=== PATIENT | female | born 1935 | race Caucasian/White ===

== ENCOUNTER 2017-12-10 14:21 | Inpatient (IN) | payer OTHER ==
[2017-12-10] MEDS: NS 1000 ML 1,000 ML IV SCH ×2 (15:05→22:48)
[2017-12-10 15:18] LABS: ABG BASE EXCESS 5.1 mmol/L (-2.0-2.0); ABG HCO3 27.1 mmol/L (22-26)
[2017-12-10 15:24] LABS: BASOPHILS % (AUTO) 0.2 % (0.2-1.0); HEMATOCRIT 27.2 % (36.0-47.0); HEMOGLOBIN 8.9 g/dL (12.0-16.0); LYMPHOCYTES # (AUTO) 1.7 X10^3/uL (1.3-2.9); LYMPHOCYTES % (AUTO) 13.6 % (21.0-51.0); MEAN CORPUSCULAR HEMOGLOBIN 29.1 pg (27.0-34.0); MEAN CORPUSCULAR HGB CONC 32.9 g/dL (33.0-35.0); MEAN CORPUSCULAR VOLUME 88.4 fL (80.0-100.0); MEAN PLATELET VOLUME 7.8 fL (7.4-11.0); MONOCYTES # (AUTO) 0.7 x10^3/uL (0.3-0.8); MONOCYTES % (AUTO) 5.6 % (0.0-13.0); NEUTROPHILS # (AUTO) 10.3 x10^3/uL (2.2-4.8); NEUTROPHILS % (AUTO) 80.6 % (42.0-75.0); PLATELET COUNT 196 X10^3/uL (150.0-450.0); RED BLOOD COUNT 3.07 X10^6/uL (3.5-5.4); RED CELL DISTRIBUTION WIDTH 17.8 % (11.6-16.5); WHITE BLOOD COUNT 12.8 X10^3/uL (3.6-10.0)
[2017-12-10 15:30] LABS: AMMONIA 23 umol/L (11-32)
[2017-12-10 15:36] VITALS: BMI 16.5
[2017-12-10 15:39] LABS: ALANINE AMINOTRANSFERASE 705 Units/L (12-78); ALBUMIN 2.2 g/dL (3.4-5.0); ALKALINE PHOSPHATASE 122 Units/L (46-116); BLOOD UREA NITROGEN 31 mg/dL (7-18); CALCIUM 8.2 mg/dL (8.5-10.1); CARBON DIOXIDE 28.2 mmol/L (21-32); CHLORIDE 103 mmol/L (98-107); COR CA(FOR HYPOALB) 9.6 mg/dL (8.5-10.1); CREATININE 1.66 mg/dL (0.55-1.02); SODIUM 139 mmol/L (136-145); TOTAL PROTEIN 5.8 g/dL (6.4-8.2); eGFR BLACK RACES 38 (>60); eGFR NON BLACK RACES 31 (>60)
[2017-12-10 15:40] LABS: ASPARTATE AMINO TRANSFERASE 1191 Units/L (15-37)
[2017-12-10 15:49] LABS: ANISOCYTOSIS SLIGHT; BAND NEUTROPHILS % 3 % (0-10); HYPOCHROMASIA 1+; MYELOCYTES % 1; PLATELET MORPHOLOGY COMMENT NORMAL (NORMAL)
[2017-12-10 15:50] LABS: TARGET CELLS NOTED
--- NOTE | 2017-12-10 16:39 | RAD ---
HISTORY: COPD. Hypertension. Study: AP portable chest Comparison: 04/13/2015 Findings: There are findings of mild pulmonary vascular congestion. Bibasilar atelectatic change/infiltrate bi lateral pleural effusions are noted, slightly improved bilaterally. Moderate to moderately severe ca rdiomegaly is noted. A small radiopacity is present in the right mid to lower lung zone, possibly fo ericka infiltrate. Moderate osteopenia is noted. Electronic cardiac device present on the left with it s 2 leads appearing to be in appropriate position. No acute bony abnormalities are identified. IMPRESSION: 1. Moderate to moderately severe cardiomegaly with mild pulmonary vascular congestion. 2. Bibasilar atelectasis/infiltrate and pleural effusions, slightly improved. 3. Small focal radiopacity in the right mid to lower lung zone, possibly focal infiltrate. This is m ore prominent than on the prior examination. Follow-up in 10-14 days is recommended. Reported By:
[2017-12-10 17:23] LABS: AMYLASE 81 Units/L (25-115); LIPASE 269 Units/L (73-393)
--- NOTE | 2017-12-10 17:39 | CT ---
CT of the abdomen and pelvis without contrast Indication: Altered mental status with acute liver failure Findings: Visualized portions of the lower lobes demonstrate bibasilar atelectasis with small bilater al pleural effusions. there is cardiomegaly with coronary atherosclerotic disease. Images of the subc utaneous tissue demonstrate a small fat containing periumbilical hernia with circumferential strandin g which may represent mild anasarca. The abdominal aorta shows atherosclerotic disease without aneury smal dilatation. the bone windows demonstrate mild multilevel discogenic degenerative disease and fac et arthropathy with grade 1 anterolisthesis of L4 on L5. No aggressive lesions are seen. Abdomen: Given the limitations of a noncontrast exam the liver is unremarkable. The gallbladder has b een removed. The kidneys show no hydronephrosis. Adrenal glands are normal. Spleen shows no abnormali ty. Pancreas is unremarkable. The spleen is minimally enlarged and there are several varicosities. Th ere is trace ascites. Pelvis: There is trace free pelvic fluid. The urinary bladder is unremarkable. No adenopathy is seen. The bowel is unremarkable, specifically without obstruction or ileus. Conclusion: 1. Question of cirrhosis given the splenomegaly and varicosities along with minimal ascit es. However evaluation is severely limited on noncontrast CT. Ultrasound could be performed to evalua te for reversal of portal flow and to look for surface nodularity which with support cirrhosis. 2. Marked cardiomegaly and coronary artery disease with bilateral pleural effusions. Reported By:
[2017-12-10 17:44] LABS: BILIRUBIN,URINE NEGATIVE (NEGATIVE); BLOOD/HEMOGLOBIN,URINE 1+ (NEGATIVE); GLUCOSE, URINE NEGATIVE (NEGATIVE); KETONES,URINE NEGATIVE (NEGATIVE); LEUKOCYTE ESTERASE ,URINE NEGATIVE (NEGATIVE); NITRITES,URINE NEGATIVE (NEGATIVE); PROTEIN,URINE 3+ (NEGATIVE); UROBILINOGEN,URINE NORMAL (NORMAL)
[2017-12-10 17:54] LABS: APPEARANCE,URINE SLIGHTLY HAZY (CLEAR); BACTERIA,URINE 3+ /HPF (NEGATIVE); COLOR,URINE YELLOW (YELLOW); SQUAMOUS EPITHELIAL CELL,UR RARE /HPF (NEGATIVE)
[2017-12-10 17:55] LABS: AMORPHOUS SEDIMENT,UR 2+ /HPF (NEGATIVE); HYALINE CASTS, URINE RARE /LPF (NEGATIVE)
[2017-12-11 06:20] LABS: ABG BASE EXCESS 2.8 mmol/L (-2.0-2.0); ABG HCO3 25.7 mmol/L (22-26)
[2017-12-11 06:36] LABS: BASOPHILS % (AUTO) 0.1 % (0.2-1.0); HEMATOCRIT 27.5 % (36.0-47.0); HEMOGLOBIN 9.1 g/dL (12.0-16.0); LYMPHOCYTES # (AUTO) 2.2 X10^3/uL (1.3-2.9); LYMPHOCYTES % (AUTO) 14.1 % (21.0-51.0); MEAN CORPUSCULAR HEMOGLOBIN 29.4 pg (27.0-34.0); MEAN CORPUSCULAR HGB CONC 33.2 g/dL (33.0-35.0); MEAN CORPUSCULAR VOLUME 88.5 fL (80.0-100.0); MEAN PLATELET VOLUME 8.6 fL (7.4-11.0); MONOCYTES # (AUTO) 0.8 x10^3/uL (0.3-0.8); MONOCYTES % (AUTO) 5.4 % (0.0-13.0); NEUTROPHILS # (AUTO) 12.4 x10^3/uL (2.2-4.8); NEUTROPHILS % (AUTO) 80.4 % (42.0-75.0); PLATELET COUNT 184 X10^3/uL (150.0-450.0); RED BLOOD COUNT 3.11 X10^6/uL (3.5-5.4); RED CELL DISTRIBUTION WIDTH 17.8 % (11.6-16.5); WHITE BLOOD COUNT 15.5 X10^3/uL (3.6-10.0)
[2017-12-11 06:56] LABS: ALANINE AMINOTRANSFERASE 864 Units/L (12-78); ALKALINE PHOSPHATASE 122 Units/L (46-116); BLOOD UREA NITROGEN 38 mg/dL (7-18); CALCIUM 8.1 mg/dL (8.5-10.1); CHLORIDE 106 mmol/L (98-107); COR CA(FOR HYPOALB) 9.7 mg/dL (8.5-10.1); CREATININE 1.51 mg/dL (0.55-1.02); SODIUM 142 mmol/L (136-145); TOTAL PROTEIN 5.5 g/dL (6.4-8.2); eGFR BLACK RACES 42 (>60); eGFR NON BLACK RACES 35 (>60)
[2017-12-11 06:57] LABS: ASPARTATE AMINO TRANSFERASE 1128 Units/L (15-37)
--- NOTE | 2017-12-11 07:28 | RAD ---
History: Acute liver failure. Study: Portable AP chest Comparison: Yesterday Findings: There is unchanged moderate cardiomegaly. There is a right pleural effusion that appears la rger than on yesterday's exam. There is mild vascular congestion. There are intact pacemaker wire jamil ds via the left subclavian vein. Impression: 1. Unchanged cardiomegaly with increasingly large right pleural effusion persistent vascular congesti on suggesting CHF Reported By:
[2017-12-11] MEDS: NS 1000 ML 1,000 ML IV SCH ×3 (08:16→22:05)
[2017-12-11] MEDS ORDERED: MORPHINE SULFATE INJ 2 MG INJ ONE (09:36)
[2017-12-11] MEDS ORDERED: BUTT CREAM (COMPOUND) ONE (09:40)
[2017-12-11] MEDS ORDERED: MORPHINE SULFATE INJ 2 MG INJ IVP ONE (10:16)
--- NOTE | 2017-12-11 10:27 | RAD ---
HISTORY: Central line placement. Study: Portable chest. Comparison: Chest x-ray dated December 11, 2017 at 6:45 a.m. Findings: The patient is rotated to the right. Interval placement of a right subclavian central venous catheter whose tip overlies the expected area of the cavoatrial junction. Cardiomegaly appears unchanged. Sta ble appearance of a multi lead left chest cardiac pacemaker. Lung aeration appears unchanged. No obvi ous pneumothorax. The osseous structures appear unchanged. IMPRESSION: 1. Right subclavian line that appears to be in good position. 2. No significant change in lung aeration. Reported By:
[2017-12-11] MEDS ORDERED: TESSALON PERLES PO PRN (10:38)
[2017-12-11] MEDS ORDERED: XANAX PO PRN (10:38)
[2017-12-11] MEDS ORDERED: PATIENT'S HOME MEDICATION (Ferrous Sulfate [Ferrous Sulfate] 325 MG) PO SCH (10:45)
[2017-12-11] MEDS ORDERED: PHARMACY CONSULT - TPN XX SCH (11:00)
[2017-12-11] MEDS ORDERED: PHARMACY CONSULT - DOSE _____ XX SCH (11:00)
[2017-12-11 11:30] LABS: ACETAMINOPHEN 4.5 ug/mL (10-30)
[2017-12-11] MEDS ORDERED: POTASSIUM CHLORIDE PO SCH (11:30)
[2017-12-11] MEDS: HEMOCYTE-PLUS PO SCH (11:59)
[2017-12-11] MEDS: MACITENTAN 10 MG PO SCH (11:59)
[2017-12-11] MEDS: ALBUMIN HUMAN 25%- 100ML 100 ML IV SCH (11:59)
[2017-12-11] MEDS: FOLTX PO SCH (11:59)
[2017-12-11] MEDS ORDERED: NS IV SCH (12:00)
[2017-12-11] MEDS ORDERED: PATIENT'S HOME MEDICATION PO SCH (12:00)
[2017-12-11] MEDS: ROCEPHIN 1 GM IV PREMIX 1 GM/50 ML IV.SOLN. IV SCH (12:00)
[2017-12-11] MEDS: LASIX PO SCH ×2 (12:00→22:04)
[2017-12-11] MEDS ORDERED: FORTAZ OR TAZICEF IV SCH (12:00)
[2017-12-11] MEDS: REVATIO PO SCH ×3 (12:00→22:04)
[2017-12-11] MEDS: MEGACE PO SCH ×4 (12:00→22:04)
[2017-12-11] MEDS: SYNTHROID 75 mcg TAB PO SCH (12:01)
[2017-12-11 13:07] LABS: BILIRUBIN,DIRECT 1.14 mg/dL (0-0.2)
[2017-12-11] MEDS: DIFLUCAN 100 MG IV (MIX by PHARMACY)* 100 MG/50 ML BAG IV SCH (13:21)
--- NOTE | 2017-12-11 13:59 | US ---
History: Acute liver failure Study: Ultrasound of the liver Findings: The liver is normal in size without demonstration of focal mass. There is appropriate flow in the hepatic vein and portal vein. The common hepatic duct measures 3.2 mm diameter. The IVC is pat ent. Fluid is demonstrated around the liver. Impression: 1. Mild ascites demonstrated 2. Unremarkable liver Reported By:
[2017-12-11] MEDS ORDERED: PHARMACY CONSULT - VANCOMYCIN XX SCH (14:00)
[2017-12-11] MEDS ORDERED: TRACE ELEMENTS IV SCH ×4 (14:00)
[2017-12-11] MEDS ORDERED: MVI IV SCH ×4 (14:00)
[2017-12-11] MEDS ORDERED: [UNRECOGNIZED DRUG - OTHER] IV SCH ×4 (14:00)
[2017-12-11] MEDS ORDERED: VANCOMYCIN HCL 500 MG VIAL 750 MG in NS 250 ML IV 250 ML IV SCH (14:00)
[2017-12-11] MEDS ORDERED: CLINIMIX IV SCH ×4 (14:00)
[2017-12-11] MEDS: DOPAMINE IV PREMIX 400 MG/250 ML 400 MG/250 ML BAG IV PRN (14:01)
[2017-12-11 15:10] LABS: ABG ALLEN TEST POS; ABG BASE EXCESS -4.7 mmol/L (-2.0-2.0); ABG HCO3 21.6 mmol/L (22-26)
[2017-12-11] MEDS ORDERED: MORPHINE SULFATE INJ 2 MG INJ IVP PRN (16:30)
--- NOTE | 2017-12-11 16:47 | DR.CONSULT ---
Consult - Consultation for Day of: Date: 12/11/17 - Chief Complaint Chief Complaint: Patient referred for acute liver failure. - Allergies Allergies/Adverse Reactions: Allergies Allergy/AdvReac Type Severity Reaction Status Date / Time Penicillins Allergy Verified 12/10/17 14:25 levofloxacin AdvReac Verified 12/10/17 14:25 - History of Present Illness History of Present Illness: Patient is a 82yo female who was referred for acute liver failure. Pateint does not answer questions. She is currently on TPN and dopamine drip. She has no history of liver disease. Abdomen is tender to palpitation, pateint moans upon palpitation. AST 1128, ALT 894, Alk phos 122, Total bili 1.7, Direct 1.14. Unable to obtain review of systems due to altered mental status. Liver US normal. - Past Medical History Past Medical History: Anemia, COPD, Hypertension, Hypothyroidism Additional Medical History: Atrial fibrillation, Pulmonary hypertension, Raynauds - Past Surgical History Surgical History: Abdominal Surgery, Ortho Surgery Additional Surgical History: Skin Cancer removal upper Left Arm - Social History Does patient currently use any type of tobacco product: No Have you used tobacco products in the last 12 months: No Type of Tobacco Use: None Does any household member use tobacco: No Alcohol Use: None Drug Use: None - Medications Home Medications: Alprazolam [XANAX 0.25 MG *] 0.5 tab PO DAILY PRN 12/10/17 [History Confirmed ] Benzonatate [TESSALON PERLES *] 2 cap PO TID PRN 12/10/17 [History Confirmed 04/21] Ferrous Sulfate 325 mg PO DAILY 12/10/17 [History Confirmed 12/10/17] Potassium Chloride 1 tab PO HS 12/10/17 [History Confirmed 12/10/17] Treprostinil Diolamine [Orenitram ER] 0.25 mg PO Q12H 12/10/17 [History Confirmed 12/10/17] - Physical Exam Vital Signs: Temperature 99.8 F Pulse Rate [Apical] 72 Respiratory Rate 18 Blood Pressure [Right Arm] 118/51 Blood Pressure [Left Arm] 145/64 Blood Pressure 158/68 O2 Sat by Pulse Oximetry 83 Oriented: Normal Eyes: Normal Ear: Normal Nose: Normal Throat: Normal Respiratory: Clear Throughout Cardiovascular: Normal : Normal Auscultation: Bowel Sounds: Normal Palpation: Normal, Other (no distention). negative: Spleen Enlarged, Liver Enlarged, Mass Pulsatile Tenderness: Diffuse Skin: Decreased Turgur Musculoskeletal: Instability Psychiatric: Anxiety, Agitation Mood Description: Anxious Affect: Anxious Speech Pattern: Aphasic - Plan Plan: Assessment. 1. Abnormal LFT likely secondary to shocked liver due to hypotensive crisis, ischemic liver injury related to hypotension. 2. 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 Plan. 1. Abnormal LFT panel, Hepatitis panel, HSV, Epistien Bar. 2. Monitor LFTs daily
[2017-12-11 17:11] LABS: IRON 72 ug/dL (50-175); TRANSFERRIN 90 mg/dL (202-364)
--- NOTE | 2017-12-11 19:52 | DR.UPDATE ---
H&P Update History and Physical Update: WAS SEEN IN THE OFFICE YESTERDAY. A H&P WAS COMPLETED PRIOR TO ADMISSION. PATIENT HAS BEEN SEEN AND EXAMINED WITH THE FOLLOWING CHANGES NOTED. Changes noted: YES Yes with the following: PATIENT WAS RECENTLY IN THE HOSPITAL IN [place], [place] FOR RESPIRATORY FAILURE. WHILE THERE, SHE WAS NOTED TO HAVE A NEW ONSET OF ELEVATED LIVER FUNCTION TESTS. 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 ON ADMISSION, WE WILL OBTAIN A CT OF THE ABD/PELVIS WITHOUT CONTRAST. WE WILL ALSO OBTAIN LABS AND CONTINUE TO MONITOR PATIENT.
[2017-12-11] MEDS ORDERED: COUMADIN TAB 2.5 MG PO SCH (21:00)
[2017-12-12] MEDS: NS 1000 ML 1,000 ML IV SCH ×2 (03:08→07:26)
[2017-12-12] MEDS: DOPAMINE IV PREMIX 400 MG/250 ML 400 MG/250 ML BAG IV PRN (03:15)
[2017-12-12] MEDS: REVATIO PO SCH (05:26)
[2017-12-12 06:16] LABS: BASOPHILS # (AUTO) 0.1 X10^3/uL (0.0-0.1); BASOPHILS % (AUTO) 0.1 % (0.2-1.0); HEMOGLOBIN 9.2 g/dL (12.0-16.0); LYMPHOCYTES # (AUTO) 1.2 X10^3/uL (1.3-2.9); LYMPHOCYTES % (AUTO) 2.9 % (21.0-51.0); MEAN CORPUSCULAR HEMOGLOBIN 28.9 pg (27.0-34.0); MEAN CORPUSCULAR HGB CONC 29.8 g/dL (33.0-35.0); MEAN PLATELET VOLUME 9.7 fL (7.4-11.0); MONOCYTES # (AUTO) 2.6 x10^3/uL (0.3-0.8); MONOCYTES % (AUTO) 6.6 % (0.0-13.0); NEUTROPHILS # (AUTO) 35.3 x10^3/uL (2.2-4.8); NEUTROPHILS % (AUTO) 90.4 % (42.0-75.0); PLATELET COUNT 163 X10^3/uL (150.0-450.0); RED BLOOD COUNT 3.19 X10^6/uL (3.5-5.4); RED CELL DISTRIBUTION WIDTH 19.4 % (11.6-16.5)
[2017-12-12 06:31] LABS: BAND NEUTROPHILS % 9 % (0-10); WHITE BLOOD COUNT 39.1 X10^3/uL (3.6-10.0)
[2017-12-12 06:32] LABS: ANISOCYTOSIS 1+; METAMYELOCYTES % 3; PLATELET MORPHOLOGY COMMENT NORMAL (NORMAL)
[2017-12-12 06:56] LABS: ALBUMIN 2.2 g/dL (3.4-5.0); CALCIUM 7.3 mg/dL (8.5-10.1); CARBON DIOXIDE 18.9 mmol/L (21-32); COR CA(FOR HYPOALB) 8.7 mg/dL (8.5-10.1); CREATININE 2.49 mg/dL (0.55-1.02); TOTAL PROTEIN 5.3 g/dL (6.4-8.2)
[2017-12-12] MEDS: ALBUMIN HUMAN 25%- 100ML 100 ML IV SCH (08:01)
[2017-12-12] MEDS: LASIX PO SCH (08:02)
[2017-12-12] MEDS: FOLTX PO SCH (08:02)
[2017-12-12] MEDS: HEMOCYTE-PLUS PO SCH (08:02)
[2017-12-12] MEDS: MACITENTAN 10 MG PO SCH (08:02)
[2017-12-12] MEDS: MEGACE PO SCH (08:03)
[2017-12-12] MEDS: SYNTHROID 75 mcg TAB PO SCH (08:03)
[2017-12-12] MEDS: ROCEPHIN 1 GM IV PREMIX 1 GM/50 ML IV.SOLN. IV SCH (08:03)
[2017-12-12] MEDS: DIFLUCAN 100 MG IV (MIX by PHARMACY)* 100 MG/50 ML BAG IV SCH (08:49)
[2017-12-12] MEDS ORDERED: K-DUR TAB 20 MEQ PO SCH (09:00)
[2017-12-12] MEDS ORDERED: VERSED 100 MG in NS 100 ML IV 80 ML IV PRN (09:06)
[2017-12-12] MEDS ORDERED: MORPHINE SULFATE PCA 30 MG IVP PRN (10:00)
[2017-12-12] MEDS ORDERED: DURAGESIC 100 mcg/HR PATCH TD SCH (10:00)
[2017-12-12 10:28] VITALS: BP 97/45
[2017-12-14 00:37] LABS: HEPATITIS A ANTIBODY IGM Negative (Negative)
[2017-12-15 08:28] LABS: HEPATITIS B CORE IGM Negative (Negative); HEPATITIS B SURFACE ANTIGEN Negative (Negative)
[2017-12-15 08:29] LABS: ANTI-NUCLEAR ANTIBODY TEST Detected (None Detected)
[2017-12-16 06:46] LABS: HERPES SIMPLEX IGM SEE COMMENTS
[2017-12-16 07:03] LABS: EBV NUCLEAR AG IGG <3.0 U/mL (0.0-21.9); EPSTEIN-BARR VCA IGG 25.6 U/mL (0.0-21.9); EPSTEIN-BARR VCA IGM <10.0 U/mL (0.0-43.9)
[2017-12-16 07:16] LABS: ANA PATTERN SEE COMMENTS
[2017-12-16 07:19] LABS: INTERPRETATION SEE COMMENTS
== END 2017-12-12 11:21 | disposition expired | DRG 441 ==
LOC: OBSVTOIN 14:21 → ICU 14:21
PROVIDERS: ADMIT Internal Medicine; ATTEND Internal Medicine
PROC: 02HV33Z Insertion of Infusion Device into Superior Vena Cava, Percutaneous Approach (ICD-10-PCS; principal; 2017-12-11)
DX: K72.00 Acute and subacute hepatic failure without coma (principal); R65.21 Severe sepsis with septic shock; R44.2 Other hallucinations; R41.82 Altered mental status, unspecified; I87.2 Venous insufficiency (chronic) (peripheral); R79.1 Abnormal coagulation profile; Z95.0 Presence of cardiac pacemaker; A41.81 Sepsis due to Enterococcus; J44.9 Chronic obstructive pulmonary disease, unspecified; I10 Essential (primary) hypertension; E03.8 Other specified hypothyroidism; I48.91 Unspecified atrial fibrillation; I27.20 Pulmonary hypertension, unspecified; R74.8 Abnormal levels of other serum enzymes; Z66 Do not resuscitate
CPT/HCPCS: 36415; 36556; 36600; 71045; 74176; 76705; 80053; 80074; 80307; 81001; 82103; 82140; 82150; 82248; 82390; 82525; 82803; 83540; 83605; 83690; 84466; 85025; 85610; 85730; 86256; 86308; 86663; 86664; 86665; 86695; 86696; 87040; 87076; 87077; 87086; 87088; 87186; 87502; A4216; A4222; B5200; P9047; G6039; J0696; J0713; J1265; J2250; J2270; J2271; J3370